=== PATIENT | female | born 1980 | race African-American/Black ===

== ENCOUNTER 2024-02-08 19:32 | Emergency (ER) | payer MEDICAID ==
[~2024-02-08] VITALS: Ht 171.4 cm; Wt 98.2 kg
[2024-02-08 19:38] VITALS: TEMP 97.8
[2024-02-08 21:34] VITALS: BP 145/86; PULSE 70; RESP 20
[2024-02-08] MEDS: METHOCARBAMOL 500 MG TABLET PO ONE (22:40)
[2024-02-08] MEDS: KETOROLAC TROMETHAMINE 60 MG/2 ML VIAL IM ONE (22:40)
[2024-02-08] MEDS: LIDOCAINE 5% TRANSDERMAL PATCH TD ONE (22:41)
[2024-02-08] MEDS ORDERED: IBUP-1492 PO (23:02)
[2024-02-08] MEDS ORDERED: PERCT PO (23:02)
[2024-02-08] MEDS ORDERED: METH-659 PO (23:02)
== END 2024-02-08 23:08 | disposition home or self-care (01) ==
LOC: EMS 19:35
DX: S13.4XXA Sprain of ligaments of cervical spine, initial encounter (principal); S39.012A Strain of muscle, fascia and tendon of lower back, initial encounter; Z91.040 Latex allergy status; V89.2XXA Person injured in unspecified motor-vehicle accident, traffic, initial encounter; Y93.89 Activity, other specified; Y92.89 Other specified places as the place of occurrence of the external cause; Y99.8 Other external cause status
CPT/HCPCS: 99283; 96372; J1885